=== PATIENT | female | born 1975 | race Caucasian/White ===

== ENCOUNTER 2019-09-19 15:51 | Observation (INO) | payer OTHER ==
[~2019-09-19] VITALS: Ht 170.2 cm; Wt 79.5 kg
[~2019-09-19 15:51] MED LIST: MUCINEX600 MG PO; NKHM; THERAFLU FLU &1 PDS PO
[2019-09-19 15:54] VITALS: BP 109/71
[2019-09-19 16:17] LABS: BASO # 0.1 10*3/uL (0.0-0.1); BASO % 0.5 % (0.0-1.0); EOS # 0.1 10*3/uL (0.0-0.4); EOS % 0.7 % (1.0-4.0); HEMATOCRIT 41.4 % (37.0-47.0); LYMPH # 1.9 10*3/uL (1.3-4.4); LYMPH % 16.8 % (27.0-41.0); MEAN CELL VOLUME 94.1 fl (81.0-99.0); MEAN CORPUSCULAR HGB 32.5 pg (27.0-31.0); MEAN CORPUSCULAR HGB CONC 34.5 g/dl (33.0-37.0); MEAN PLATELET VOLUME 10.5 fl (9.6-12.3); MONO # 0.8 10*3/uL (0.1-1.0); MONO % 6.8 % (3.0-9.0); NEUT # 8.3 10*3/uL (2.3-7.9); NEUT % 74.7 % (47.0-73.0); PLATELET COUNT AUTOMATED 210 10*3/uL (130-400); RED CELL DISTRI WIDTH 12.5 % (0-14.5); WHITE BLOOD COUNT 11.1 10*3/uL (4.8-10.8)
[2019-09-19 16:28] LABS: ACT PARTIAL THROMBO TIME 26.1 SECONDS (20.0-32.1)
[2019-09-19 16:33] LABS: ALBUMIN 3.6 gm/dl (3.1-4.5); ALKALINE PHOSPHATASE 82 U/L (45-117); BUN 12 mg/dl (7-24); CHLORIDE 110 mmol/L (98-107); CREATININE 0.76 mg/dL (0.55-1.02); POTASSIUM 3.7 mmol/L (3.5-5.1); SGOT/AST 9 IU/L (3-35); SGPT/ALT 29 U/L (12-78); SODIUM 139 mmol/L (136-145); TOTAL PROTEIN 7.1 gm/dL (6.4-8.2)
[2019-09-19 16:36] LABS: TROPONIN I < 0.015 ng/ml (<0.045)
[2019-09-19 18:34] VITALS: BP 117/78
--- NOTE | 2019-09-19 18:47 | NUR ---
PT WITH BED PLACEMENT. WE ARE NOT TO TAKE PT UP TILL AFTER 7P. PT IS RESTING IN BED. NO SIGNS OF ACUTE DISTRESS NOTED.
--- NOTE | 2019-09-19 19:08 | NUR ---
NURSE TO NURSE REPORT GIVEN TO THIS RN.ADVISED PT CAN GO TO FLOOR AFTER 1900.
--- NOTE | 2019-09-19 19:31 | NUR ---
THIS RN CALLED AND SPOKE WITH SAFIA EVERETT AND ADVISED SHE IS UNABLE TO EXCEPT PT AT THIS TIME AND GIVES ETA OF 30 MINUTES FOR PT TO BE TRANSFERRED TO UNIT FROM ED.
[2019-09-19 19:45] VITALS: BP 125/72
--- NOTE | 2019-09-19 19:45 | NUR ---
A 44, admitted to , under the services of ROSY Jensen DO with a diagnosis of CHEST PAIN. Chief complaint is CHEST PAIN. Patient arrived via bed from ER. Monitor applied. Initial assessment completed. Vital signs taken and recorded. ROSY JENSEN DO notified of admission to the unit. Orders received. See assessment for past medical history, medications and allergies. Patient and/or family oriented to unit. [facility]. Clothing/patient valuable form completed. BETHANIE PAVON
[2019-09-19 20:00] VITALS: BP 125/72
--- NOTE | 2019-09-19 20:00 | NUR ---
PATIENT HAS TWO PERSCRIPTIONS IN PHARMACY.
[2019-09-19] MEDS ORDERED: VITAMIN D2 1.25MG(50 (20:03)
[2019-09-19] MEDS ORDERED: OXYCODONE HCL5 MG PO (20:04)
--- NOTE | 2019-09-19 20:15 | NUR ---
DR. THORNE NOTIFIED PATIENT HOME MEDICATIONS ARE UP TO DATE.
--- NOTE | 2019-09-19 22:25 | NUR ---
DR. NORIEGA CALLED AT THIS TIME TO CONFIRM THAT PATIENTS THAT ARE OBSERVATION CAN HAVE ECHO AND STRESS TESTING DONE, HE ADVISED THAT OF "A COUPLE OF MONTHS AGO PATIENTS WHO WERE OBSERVATION CAN HAVE STRESS AND ECHO TESTING."
[2019-09-20] VITALS: BP 126/76
--- NOTE | 2019-09-20 01:40 | NUR ---
DR. NORIEGA CALLED FOR ORDERS FOR PATIENT COMPLAINT OF ANXIETY AND RESTLESSNESS. ORDERS RECEIVED, SEE EMAR.
--- NOTE | 2019-09-20 02:00 | NUR ---
ONE TIME DOSE OF VISTARIL FOR PATIENT GIVEN AT THIS TIME FOR COMPLAINT OF ANXIETY AND RESTLESSNESS. PATIENT A&O X3, CALL LIGHT WITHIN REACH WILL CONTINUE TO MONITOR.
--- NOTE | 2019-09-20 02:25 | NUR ---
NOTIFIED BY [employer] THAT PATIENT HEART RATE WAS IN THE 120-130 AT THIS TIME. UPON ENTERING ROOM PATIENT STATED THAT SHE HAD BEEN UP TO THE BATHROOM AND WAS WALKING AROUND THE ROOM BUT DENIED ANY CHEST PAIN/PRESSURE, OR SHORTNESS OF BREATH DURING THE TACHYCARDIC EVENT. CALL LIGHT WITHIN REACH WILL CONTINUE TO MONITOR.
--- NOTE | 2019-09-20 02:45 | NUR ---
PATIENT STATED THAT VISTARIL WAS NOT EFFECTIVE AT THIS TIME, BUT SHE HAD JUST BEEN UP TO THE BATHROOM AND HAD BEEN WALKING AROUND THE ROOM AND HAD JUST GOTTEN BACK INTO THE BED. PATIENT A&O X3 WILL CONTINUE TO MONITOR.
--- NOTE | 2019-09-20 04:10 | NUR ---
PATIENT RESTING IN BED IN A POSITION OF COMFORT AT THIS TIME NO SIGNS OR SYMPTOMS OF DISTRESS NOTED AT THIS TIME. CALL LIGHT WITHIN REACH, WILL CONTINUE TO MONITOR.
[2019-09-20 06:46] LABS: BASO # 0.1 10*3/uL (0.0-0.1); BASO % 0.7 % (0.0-1.0); EOS # 0.1 10*3/uL (0.0-0.4); HEMATOCRIT 40.5 % (37.0-47.0); LYMPH # 2.3 10*3/uL (1.3-4.4); LYMPH % 23.1 % (27.0-41.0); MEAN CELL VOLUME 94.2 fl (81.0-99.0); MEAN CORPUSCULAR HGB 32.3 pg (27.0-31.0); MEAN CORPUSCULAR HGB CONC 34.3 g/dl (33.0-37.0); MEAN PLATELET VOLUME 10.9 fl (9.6-12.3); MONO # 0.7 10*3/uL (0.1-1.0); MONO % 7.4 % (3.0-9.0); NEUT # 6.7 10*3/uL (2.3-7.9); NEUT % 67.4 % (47.0-73.0); PLATELET COUNT AUTOMATED 203 10*3/uL (130-400); RED CELL DISTRI WIDTH 12.5 % (0-14.5)
[2019-09-20 07:07] LABS: BUN 9 mg/dl (7-24); CHLORIDE 111 mmol/L (98-107); CHOLESTEROL 182 mg/dL (<200); CREATININE 0.61 mg/dL (0.55-1.02); FREE T4 1.15 ng/dl (0.76-1.46); HDL CHOLESTEROL 30 mg/dl (40-60); LDL CHOLESTEROL 130 mg/dL (9-159); POTASSIUM 3.7 mmol/L (3.5-5.1); SODIUM 139 mmol/L (136-145); TRIGLYCERIDES 111 mg/dl (<150); VLDL CHOLESTEROL 22 mg/dL (6-40)
[2019-09-20 08:00] VITALS: BP 104/66
[2019-09-20 09:39] LABS: VITAMIN D, 25-HYDROXY 44.9 ng/mL (30-100)
--- NOTE | 2019-09-20 09:40 | NUR ---
DR ALEXANDER ROUNDED AND SEEN PT.AWARE OF PT NEEDING IV ACCESS FOR BLOOD TRANSFUSION.NO NEW ORDERS.
--- NOTE | 2019-09-20 10:15 | NUR ---
INFORMED CONSENT OBTAINED FOR EXERCISE CARDIOLITE STRESS TEST WITH DR. IVERSON. RESTING EKG SINUS TACH WITH A SUPINE HR OF 102 WITH BP OF 104/64 AND HR OF 115 WITH BP OF 94/66 IN STANDING POSITION. PT COMPLETED 59 SECONDS OF STAGE III AT 3.4 MPH AND 14% GRADE. REACHED A PEAK HR OF 167 WHICH IS 95% OF PREDICTED MAX WITH A PEAK BP OF 130/70. TEST TERMINATED BECAUSE OF FATIGUE. HAD NO CHEST PAIN OR ANY EKG CHANGES. HAS A FAIR EXERCISE TOLERANCE. LAST RECOVERY HR OF 109 WITH BP OF 104/66. AWAITING SCANNING IN STABLE CONDITION.
--- NOTE | 2019-09-20 14:04 | NUR ---
Natural Sciences Department Chair in to talk to patient. Patient states lives at HOME with . There are FEW steps in the home. Physician: CARLOS Pharmacy: [facility] Home health services: NONE Patient's level of ADLs: INDEPENDENT Patient has working utilities: YES DME: NONE Follow-up physician's appointment after d/c: WILL BE MADE BY HOSPITALIST NURSE DIRECTOR ON DISCHARGE Does patient want to access PORTAL?: NO Discharge plan PT LIVES AT HOME WITH HER AND IS INDEPENDENT IN HER CARE. DENIES SHE WILL HAVE ANY NEEDS ON DISCHARGE. PLANS TO RETURN HOME WHEN MEDICALLY STABLE. WILL CONTINUE TO FOLLOW. STATES SHE WILL HAVE A RIDE HOME.. GRISELDA FERRARI
--- NOTE | 2019-09-20 15:08 | NUR ---
Discharge instructions reviewed with patient/family. Patient receptive and verbalizes understanding. Follow-up care arranged. Written instructions given to patient/family. CARSON FONSECA
== END 2019-09-20 15:08 | disposition home or self-care (01) ==
LOC: ED 15:51 → EDHOLD 18:20 → 5E 18:20
PROVIDERS: Emergency Medicine; Internal Medicine; ADMIT Internal Medicine
DX: R07.2 Precordial pain (principal); R00.0 Tachycardia, unspecified; D72.829 Elevated white blood cell count, unspecified; E87.8 Other disorders of electrolyte and fluid balance, not elsewhere classified; R73.9 Hyperglycemia, unspecified; E83.41 Hypermagnesemia; M54.9 Dorsalgia, unspecified; G89.29 Other chronic pain; E78.5 Hyperlipidemia, unspecified; M54.2 Cervicalgia

== ENCOUNTER → 2023-01-09 | Outpatient (CLI) | payer OTHER ==
[~2023-01-09] MED LIST changes: +OXYCODONE HCL5 MG PO; +VITAMIN D2 1.25MG(50
== END | disposition home or self-care (01) ==
LOC: RAD 12:19
PROVIDERS: ATTEND Nurse Practitioner Family
DX: J40 Bronchitis, not specified as acute or chronic (principal); R05.8 Other specified cough; Z72.0 Tobacco use; Z90.49 Acquired absence of other specified parts of digestive tract

== ENCOUNTER 2025-04-21 19:42 | Emergency (ER) | payer OTHER ==
[~2025-04-21] VITALS: Ht 170.1 cm; Wt 76.2 kg
[2025-04-21 20:13] VITALS: BP 176/97
[2025-04-21] MEDS ORDERED: SODIUM CHLORIDE 0.9% 1,000 ML IV ONE (21:15)
[2025-04-21] MEDS ORDERED: Metoclopramide Hydrochloride 10 MG/2 ML VIAL IV ONE (21:15)
[2025-04-21] MEDS ORDERED: diphenhydrAMINE hydrochloride 50 MG/ML VIAL IV ONE (21:20)
[2025-04-21] MEDS ORDERED: HYDROmorphONE Hydrochloride 0.5 MG/0.5 ML SYRINGE IV ONE (21:20)
[2025-04-21] MEDS ORDERED: IOHEXOL 300 MG/ML 100 ML VIAL IV ONE (21:25)
[2025-04-21 21:32] LABS: BASO # 0.0 10*3/uL (0.0-0.1); BASO % 0.4 % (0.0-1.0); EOS # 0.0 10*3/uL (0.0-0.4); EOS % 0.5 % (1.0-4.0); MEAN CELL VOLUME 95.8 fl (81.0-99.0); MEAN CORPUSCULAR HGB 33.5 pg (27.0-31.0); MEAN PLATELET VOLUME 10.5 fl (9.6-12.3); MONO # 0.5 10*3/uL (0.1-1.0); MONO % 6.2 % (3.0-9.0); NEUT # 5.9 10*3/uL (2.3-7.9); NEUT % 69.6 % (47.0-73.0); NUCLEATED RED BLOOD CELL 0.0 % (0.0-0.0); NUCLEATED RED BLOOD CELL 0.0 10*3/uL (0.0-0.0); PLATELET COUNT AUTOMATED 158 10*3/uL (130-400); RED CELL DISTRI WIDTH 12.0 % (0-14.5)
[2025-04-21 21:49] LABS: BUN 6 mg/dl (9-23); SGPT/ALT 44 U/L (5-49)
[2025-04-21] MEDS ORDERED: MG-AL HYDROXIDE/SIMETICONE 30 ML UDC PO STA (23:16)
[2025-04-21] MEDS ORDERED: Dicyclomine Hydrochloride 20 MG/10 ML OSYR PO STA (23:16)
[2025-04-21] MEDS ORDERED: PROTONIX40 MG PO (23:43)
== END 2025-04-22 00:02 | disposition home or self-care (01) ==
LOC: ED 19:42
PROVIDERS: Nurse Practitioner Family
DX: K21.9 Gastro-esophageal reflux disease without esophagitis (principal); R07.89 Other chest pain; E88.89 Other specified metabolic disorders; F41.9 Anxiety disorder, unspecified; R10.13 Epigastric pain; R00.0 Tachycardia, unspecified; Z90.49 Acquired absence of other specified parts of digestive tract